=== PATIENT | female | born 1935 | race Caucasian/White ===

== ENCOUNTER 2022-09-12 13:29 | Emergency (ER) | payer MEDICARE, OTHER ==
[2022-09-12 13:55] VITALS: BP 168/72; PULSE 72
[2022-09-12 13:59] LABS: HEMATOCRIT 39.9 % (34.3-46.0); MEAN CORPUSCULAR HEMOGLOBIN 29.1 pg (31.6-35.5); MEAN CORPUSCULAR HGB CONC 32.6 g/dL (31.6-35.5); MEAN CORPUSCULAR VOLUME 89.5 fL (81.4-99.0); RED BLOOD CELL COUNT 4.46 M/uL (3.77-5.24)
[2022-09-12 14:07] LABS: INR 2.2; PROTHROMBIN TIME 21.2 sec (9.2-10.6)
[2022-09-12 14:25] LABS: CALCIUM 9.3 mg/dL (8.5-10.1); EST CRCL DRUG DOSING (CG) 32.79 mL/min; POTASSIUM,K 3.5 mmol/L (3.6-5.2)
[2022-09-12 14:43] LABS: ANION GAP 12.5 mmol/L (5.0-14.0)
[2022-09-12] MEDS ORDERED: Diphtheria,Pertussis(Acell),Tetanus Vaccine 0.5 ML Syringe IM ONE (15:01)
== END 2022-09-12 18:30 | disposition home or self-care (01) ==
LOC: JP.ED 13:29
DX: S00.83XA Contusion of other part of head, initial encounter (principal); I48.91 Unspecified atrial fibrillation; I50.9 Heart failure, unspecified; Z95.0 Presence of cardiac pacemaker; Z79.01 Long term (current) use of anticoagulants; Z79.899 Other long term (current) drug therapy; Z88.2 Allergy status to sulfonamides; W10.9XXA Fall (on) (from) unspecified stairs and steps, initial encounter; Y93.01 Activity, walking, marching and hiking; Y92.512 Supermarket, store or market as the place of occurrence of the external cause
CPT/HCPCS: 36415; 70450; 70486; 71046; 72125; 72131; 72170; 73030-LT; 73100-RT; 73502-LT; 76377; 80048; 85027; 85610; 90471; 90715; 99284; 99284-25

== ENCOUNTER 2023-09-22 20:40 | Emergency (ER) | payer MEDICARE ==
[2023-09-22 20:49] VITALS: BP 154/60; PULSE 68
[2023-09-22 21:37] LABS: INR 2.5; PROTHROMBIN TIME 24.3 sec (9.2-10.6)
== END 2023-09-22 23:36 | disposition home or self-care (01) ==
LOC: JP.ED 20:40
DX: S46.912A Strain of unspecified muscle, fascia and tendon at shoulder and upper arm level, left arm, initial encounter (principal); S20.212A Contusion of left front wall of thorax, initial encounter; I50.9 Heart failure, unspecified; I48.91 Unspecified atrial fibrillation; Z79.01 Long term (current) use of anticoagulants; Z88.2 Allergy status to sulfonamides; Z79.899 Other long term (current) drug therapy; Z95.0 Presence of cardiac pacemaker; Z90.710 Acquired absence of both cervix and uterus; W01.0XXA Fall on same level from slipping, tripping and stumbling without subsequent striking against object, initial encounter
CPT/HCPCS: 36415; 70450; 71046; 71046-26; 72125; 73030-LT; 76377; 85610; 99284

== ENCOUNTER 2023-09-26 13:29 | Emergency (ER) | payer MEDICARE ==
[2023-09-26 14:40] LABS: BASOPHILS ABSOLUTE AUTO 0.04 K/uL (0.00-0.10); BASOPHILS PERCENT AUTO 0.7 % (0.1-1.3); EOSINOPHILS ABSOLUTE AUTO 0.14 K/uL (0.00-0.40); EOSINOPHILS PERCENT AUTO 2.4 % (0.0-5.4); HEMATOCRIT 32.6 % (34.3-46.0); HEMOGLOBIN 10.9 g/dL (11.2-15.5); IMMATURE GRAN PERCENT AUTO 0.3 % (0.0-0.7); LYMPHOCYTES ABSOLUTE AUTO 0.95 K/uL (0.8-3.3); LYMPHOCYTES PERCENT AUTO 16.3 % (11.4-47.7); MEAN CORPUSCULAR HEMOGLOBIN 29.9 pg (31.6-35.5); MEAN CORPUSCULAR HGB CONC 33.4 g/dL (31.6-35.5); MEAN CORPUSCULAR VOLUME 89.3 fL (81.4-99.0); MONOCYTES ABSOLUTE AUTO 0.51 K/uL (0.20-0.90); MONOCYTES PERCENT AUTO 8.7 % (3.3-12.6); NEUTROPHILS ABSOLUTE AUTO 4.17 K/uL (1.0-7.6); NEUTROPHILS PERCENT AUTO 71.6 % (40.0-78.1); PLATELET COUNT,PLT 155 K/uL (130-375); RED BLOOD CELL COUNT 3.65 M/uL (3.77-5.24); WHITE BLOOD CELL COUNT,WBC 5.8 K/uL (3.2-11.0)
[2023-09-26 14:47] LABS: IMMATURE GRAN ABSOLUTE AUTO 0.02 K/uL (0.00-0.23)
[2023-09-26 14:56] LABS: PROTHROMBIN TIME 42.5 sec (9.2-10.6)
[2023-09-26 15:13] LABS: INR 4.4
[2023-09-26 16:21] VITALS: BP 138/52; PULSE 73
== END 2023-09-26 16:24 | disposition home or self-care (01) ==
LOC: JP.ED 13:29
DX: S42.292A Other displaced fracture of upper end of left humerus, initial encounter for closed fracture (principal); R79.1 Abnormal coagulation profile; Z88.2 Allergy status to sulfonamides; Z79.01 Long term (current) use of anticoagulants; Z79.899 Other long term (current) drug therapy; Z90.49 Acquired absence of other specified parts of digestive tract; Z90.710 Acquired absence of both cervix and uterus; W19.XXXA Unspecified fall, initial encounter
CPT/HCPCS: 36415; 73030-26-LT; 73030-LT; 85025; 85610; 99283